=== PATIENT | female | born 1960 | race Caucasian/White ===

== ENCOUNTER 2018-03-06 15:58 | Outpatient (CLI) | payer BC ==
--- NOTE | 2018-03-17 13:37 | Mammography Report ---
Procedure Date: 03/06/2018 Accession Number: [id number] / [id number] Procedure: MGN - Screening Mammo Dig Bilat CPT Code: FULL RESULT: EXAM: Screening Mammo Dig Bilat DATE: 03/06/2018 4:20 PM CLINICAL HISTORY: 57-year-old for screening TECHNIQUE: Bilateral CC and MLO views were obtained. COMPARISON: The patient reports having had previous mammograms in [place], [place], but films are not yet available for direct comparison. If they become available, an addendum will be issued. FINDINGS: The breasts demonstrate diffuse fatty replacement bilaterally. Coarse and punctate, typically benign calcifications are present. No suspicious masses, clustered microcalcifications, or regions of architectural distortion are identified. IMPRESSION: Benign findings RECOMMENDATION: Routine annual screening unless otherwise clinically indicated. BIRADS CATEGORY 2: Benign findings STANDARD QUALIFYING STATEMENTS: 1. This examination was reviewed with the aid of Computer-Aided Detection (CAD). 2. A negative or benign imaging report should not delay biopsy if clinically suspicious findings are present. Consider surgical consultation if warrented. More than 5% of cancers are not identified by imaging. 3. Dense breasts may obscure an underlying neoplasm.
== END 2018-03-06 15:59 | disposition home or self-care (01) ==
LOC: DI.N 15:58
PROVIDERS: ATTEND Nurse Practitioner Obstetrics & Gynecology
DX: Z12.39 Encounter for other screening for malignant neoplasm of breast (principal)
CPT/HCPCS: 77067

== ENCOUNTER 2019-05-07 07:48 | Outpatient (CLI) | payer OTHER ==
--- NOTE | 2019-05-07 12:52 | Mammography Report ---
Reason: BREAST TENDERNESS Procedure Date: 05/07/2019 Accession Number: [id number] / [id number] Procedure: THO - Diagnostic Dig Bilat CPT Code: FULL RESULT: EXAM: Diagnostic Dig Bilat DATE: 05/07/2019 9:02 AM CLINICAL HISTORY: Diagnostic examination. Breast tenderness on the left. TECHNIQUE: (B) - Bilateral CC and MLO views were obtained. COMPARISON: 03/06/2018. PARENCHYMAL PATTERN: (F) - The breast(s) demonstrate(s) diffuse fatty replacement. FINDINGS: Typically benign coarse calcifications are noted. There are no suspicious masses, calcifications, or areas of distortion. IMPRESSION: Benign findings. BI-RADS category 2. RECOMMENDATION: (ANNUAL) - Recommend routine annual screening mammography. BI-RADS CATEGORY: (2) - Benign Findings. STANDARD QUALIFYING STATEMENTS: 1. This examination was not reviewed with the aid of Computer-Aided Detection (CAD). 2. A negative or benign imaging report should not preclude biopsy if clinically suspicious findings are present. 3. Dense breasts may obscure an underlying neoplasm. 4. This examination was reviewed with the aid of 3D breast imaging (tomosynthesis).
== END 2019-05-07 07:49 | disposition home or self-care (01) ==
LOC: DI 07:48
PROVIDERS: ATTEND Nurse Practitioner Obstetrics & Gynecology
DX: N64.4 Mastodynia (principal)
CPT/HCPCS: 77066

== ENCOUNTER 2019-06-20 11:15 | Outpatient (CLI) | payer OTHER ==
--- NOTE | 2019-06-21 15:54 | XRAY Report ---
Reason: BLE PAIN, RADICULOPATHY LOWER ESTREM Procedure Date: 06/20/2019 Accession Number: [id number] / [id number] Procedure: XRN - Pelvis 1 View CPT Code: FULL RESULT: EXAM: PELVIS RADIOGRAPHY 1 VIEW EXAM DATE: 06/20/2019. CLINICAL HISTORY: Bilateral lower extremity pain. Lower extremity radiculopathy. COMPARISON: LUMBAR SPINE 2 VIEW 06/20/2019 11:55 AM. TECHNIQUE: AP view. FINDINGS: Bones: Normal. No fracture or bone lesion. Joints: The hips, the sacroiliac joints, and the pubic symphysis appear normal. Mild L4-L5 disk narrowing. Soft Tissues: Small calcifications lateral to the left greater trochanter. IMPRESSION: Small soft shoe calcification lateral to the left greater trochanter, probably calcific tendinosis. L4-L5 degenerative disk disease. Otherwise normal examination. RADIA
--- NOTE | 2019-06-21 16:03 | XRAY Report ---
Reason: BLE PAIN, RADICULOPATHY LOWER ESTREM Procedure Date: 06/20/2019 Accession Number: [id number] / [id number] Procedure: XRN - Lumbar Spine 2 View CPT Code: FULL RESULT: EXAM: LUMBOSACRAL SPINE RADIOGRAPHY EXAM DATE: 06/20/2019 12:00 PM. CLINICAL HISTORY: Bilateral lower extremity pain, radiculopathy lower extremities. COMPARISONS: PELVIS 1 VIEW 06/20/2019 11:53 AM. TECHNIQUE: 3 views. FINDINGS: There is a 13 degree levoscoliosis of the lumbar spine with the apex at L2-L3. There is a compensatory 7 degree dextroscoliosis of the lower lumbar spine with the apex at L4-L5. The sacral arcs are intact. There are small phleboliths demonstrated within the pelvis. There is a mild decrease in the intervertebral disk space height at L4-L5. There is mild facet arthropathy suggested at L3-L4 through L5-S1. There is mild narrowing of the neural foramina bilaterally at L5-S1. The abdominal aorta exhibits mild calcific plaquing but appears to exhibit a normal caliber. IMPRESSION: 1. There is a 13 degree levoscoliosis of the lumbar spine with the apex at L2-L3 with a compensatory 7 degree dextroscoliosis of the lower lumbar spine with the apex at L4-L5. 2. There are mild degenerative changes of the disk at L4-L5 and there is a mild degree of facet arthropathy at L3-L4 through L5-S1.
== END 2019-06-20 11:16 | disposition home or self-care (01) ==
LOC: DI.N 11:15
PROVIDERS: ATTEND Physician Assistant Medical
DX: M51.16 Intervertebral disc disorders with radiculopathy, lumbar region (principal); M41.86 Other forms of scoliosis, lumbar region
CPT/HCPCS: 72100; 72170

== ENCOUNTER 2020-05-08 15:44 | Outpatient (CLI) | payer OTHER ==
--- NOTE | 2020-05-08 16:56 | XRAY Report ---
PROCEDURE: Cervical Spine 2 View INDICATIONS: CERVICALGIA TECHNIQUE: 2 view(s) of the cervical spine were acquired. COMPARISON: None. FINDINGS: Straightening of the usual cervical lordosis. This is likely related to degenerative change as there is extensive spondylosis and spondyloarthropathy from C3-C4 through C6-C7, focally most pronounced at C5-C6 and C6-C7. There is no listhesis. Vertebral body heights maintained. Developing degenerative ( versus developmental) fusion of the posterior elements at C2-C3. IMPRESSION: Multilevel multifactorial degenerative changes, overall moderate. MRI would be helpful f or further evaluation. Reviewed by: Akhil Taylor MD on 05/08/2020 4:55 PM PDT Approved by: Akhil Taylor MD on 05/08/2020 4:55 PM PDT Station ID: [id number]
== END 2020-05-08 15:45 | disposition home or self-care (01) ==
LOC: DI.N 15:44
PROVIDERS: ATTEND Physician Assistant
DX: M47.812 Spondylosis without myelopathy or radiculopathy, cervical region (principal); R51 Headache
CPT/HCPCS: 72040

== ENCOUNTER 2020-08-29 20:14 | Outpatient (CLI) | payer OTHER | END 2020-08-29 20:15 | disposition critical access hospital (66) | LOC: EMS 20:14 | PROVIDERS: ATTEND Surgery | DX: M25.511 Pain in right shoulder (principal) | CPT/HCPCS: A0425; A0429 ==

== ENCOUNTER 2020-08-29 20:31 | Emergency (ER) | payer OTHER ==
[2020-08-29] MEDS ORDERED: HYDROcod/ACETAM 5/325 MG TABLET PO STA (20:36)
--- NOTE | 2020-08-29 20:39 | ED Physician Documentation ---
PD HPI UPPER EXT INJURY - Stated complaint Stated Complaint: GLF/R ARM PX - History obtained from History obtained from: Patient, EMS - Additonal information Additional information: Trip and fall in the kitchen at home just prior to arrival onto the right elbow. She also hurt the knee just a little bit but is able to walk and bear weight. Has severe upper arm pain. No loss of consciousness or head injury. Review of Systems Ten Systems: 10 systems reviewed and negative Constitutional: reports: Reviewed and negative Ears: reports: Reviewed and negative Nose: reports: Reviewed and negative Throat: reports: Reviewed and negative Cardiac: reports: Reviewed and negative Respiratory: reports: Reviewed and negative PD PAST MEDICAL HISTORY - Past Medical History HEENT: Glaucoma - Past Surgical History Past Surgical History: Yes /DIALYSIS TECH: section, Hysterectomy - Present Medications Home Medications: Ambulatory Orders Medication Instructions Recorded Confirmed prednisoLONE 1% OPHTH DROPS [Pred 1 drop EACHEYE DAILY 08/20/15 08/29/20 Forte 1% Ophth Drops] Brimonidine Tartrate/Timolol 1 drops OP BID 08/29/20 08/29/20 [Combigan 0.2%-0.5% Eye Drops] Brinzolamide 1% Ophth Drops [Azopt 1 drops EACHEYE BID 08/29/20 08/29/20 1% Ophth Drops] Bromfenac Sodium [Prolensa] 1 drops OP DAILY 08/29/20 08/29/20 HYDROcod/ACETAM 5/325 [[place] 5/325] 1 - 2 tab PO Q6H PRN #20 tablet 08/29/20 Levothyroxine Sodium 50 mcg PO DAILY 08/29/20 08/29/20 [Levothyroxine] Lisinopril [Prinivil] 10 mg PO DAILY 08/29/20 08/29/20 Loteprednol Etabonate [Lotemax] 5 gm OP 1-2XD 08/29/20 08/29/20 Rosuvastatin Calcium [Crestor] 10 mg PO DAILY 08/29/20 08/29/20 hydroCHLOROthiazide [Hydrodiuril] 25 mg PO DAILY 08/29/20 08/29/20 - Allergies Allergies/Adverse Reactions: Allergies Allergy/AdvReac Type Severity Reaction Status Date / Time No Known Drug Allergies Allergy Verified 08/29/20 20:49 - Social History Does the pt smoke?: No Smoking Status: Never smoker Does the pt drink ETOH?: Yes Does the pt have substance abuse?: No PD ED PE NORMAL - Vitals Vital signs reviewed: Yes - General General: Alert and oriented X 3, No acute distress - HEENT HEENT: PERRL, EOMI - Neck Neck: Supple, no meningeal sign, No bony TTP - Cardiac Cardiac: RRR, No murmur - Respiratory Respiratory: No respiratory distress, Clear bilaterally - Abdomen Abdomen: Non tender - Extremities Extremities: Other (She cannot range the right shoulder at all and is tender over the upper humerus. No tenderness of the clavicle or the top of the glenohumeral joint. Elbow and wrist are nontender. Good radial pulses on the right. Normal sensation throughout the right hand.) - Neuro Neuro: Alert and oriented X 3, Normal speech Results - Vitals Vitals: Vital Signs - 24 hr 08/29/20 08/29/20 20:32 21:04 Temperature 36.9 C Heart Rate 66 69 Respiratory 17 16 Rate Blood Pressure 200/106 H 163/103 H O2 Saturation 100 100 Oxygen O2 Source Room air PD MEDICAL DECISION MAKING - ED course ED course: 60-year-old woman presents after a ground-level fall with an isolated right h umerus fracture on x-ray. No other apparent serious injuries. Placed in a sling and discussed expected course of healing and signs and symptoms that would necessitate an urgent reevaluation. Departure - Departure Disposition: 01 Home, Self Care Clinical Impression: Closed fracture of neck of right humerus Qualifiers: Encounter type: initial encounter Qualified Code(s): S42.211A - Unspecified displaced fracture of surgical neck of right humerus, initial encounter for closed fracture Condition: Good Record reviewed to determine appropriate education?: Yes Instructions: ED Fx Upper Ext Prescriptions: HYDROcod/ACETAM 5/325 [[place] 5/325] 1 - 2 tab PO Q6H PRN #20 tablet PRN Reason: Pain Comments: As discussed, fracture of the humerus generally heal well without specific intervention. You should follow-up with the orthopedic surgeons within the week for recheck and potentially a referral to physical therapy. Wear the sling as needed for comfort. You can remove it for bathing etc. Do not drink or drive while taking narcotic pain medication. Note that many narcotic pain relievers also contain Tylenol/acetaminophen. Please ensure that your total dose of acetaminophen from all sources does not exceed 3 g (3000 mg) per day. You may get constipated while on this medication. Take a stool softener such as Colace twice a day while you are on it. Also add an koog-gpe-qwedwha laxative such as senna or MiraLAX on any day that you do not have a bowel movement. If you received a narcotic pain medication or sedative while in the emergency department, do not drive for the next 24 hours. Forms: Activity restrictions
[2020-08-29 21:05] VITALS: BP 163/103
--- NOTE | 2020-08-29 21:16 | XRAY Report ---
PROCEDURE: Humerus RT INDICATIONS: r ARM INJ TECHNIQUE: 4 views of the humerus were acquired. COMPARISON: None FINDINGS: Bones: Acute fracture involving right humeral neck is seen with fracture line extending to base of gr eater tuberosity with minimal lateral displacement at fracture site. No fracture or dislocation is se en in mid to distal humeral shaft. Shoulder joint osteoarthritic changes are seen. No suspicious bony lesions. Soft tissues: No suspicious soft tissue calcifications. IMPRESSION: Acute minimally displaced fracture involving right humeral neck extending to base of greater tuberosi ty. Reviewed by: Moe Main MD on 08/29/2020 9:15 PM PST Approved by: Moe Main MD on 08/29/2020 9:15 PM PST Station ID: [id number]
[2020-08-29] MEDS ORDERED: HYDROcod/ACET 5/325 Prepack 4 PO STA (21:22)
== END 2020-08-29 21:40 | disposition home or self-care (01) ==
LOC: EDUNIT# → ED 20:31
DX: S42.211A Unspecified displaced fracture of surgical neck of right humerus, initial encounter for closed fracture (principal); W18.09XA Striking against other object with subsequent fall, initial encounter; Y92.000 Kitchen of unspecified non-institutional (private) residence as the place of occurrence of the external cause; M25.569 Pain in unspecified knee
CPT/HCPCS: 73060; 99283; 99284; A9270

== ENCOUNTER 2020-09-04 11:55 | Outpatient (CLI) | payer OTHER ==
--- NOTE | 2020-09-04 12:34 | XRAY Report ---
PROCEDURE: Shoulder 3 View RT INDICATIONS: NONDISPLACED FX OF PROXIMAL END OF R HUMERUS TECHNIQUE: 3 views of the shoulder were acquired. COMPARISON: Humerus x-ray 08/29/2020 FINDINGS: Bones: Stable interval exam demonstrating fracture of the right humeral neck with fracture lucency ex tending to the greater tuberosity. There is minimal displacement without dislocation at the glenohume ral joint space. Minimal inferior subluxation is noted. Severe acromioclavicular degenerative narrowi ng. No suspicious bony lesions. Visualized ribs appear intact. Soft tissues: No suspicious soft tissue calcifications. IMPRESSION: Stable alignment appears identified humeral neck fracture extending to the greater tuber osity. Reviewed by: Ruma Paez MD on 09/04/2020 12:33 PM PST Approved by: Ruma Paez MD on 09/04/2020 12:33 PM PST Station ID: [id number]
== END 2020-09-04 23:59 | disposition home or self-care (01) ==
LOC: DI.N 11:55
PROVIDERS: ATTEND Orthopaedic Surgery
DX: S42.291D Other displaced fracture of upper end of right humerus, subsequent encounter for fracture with routine healing (principal)

== ENCOUNTER 2020-09-18 08:00 | Outpatient (CLI) | payer OTHER ==
--- NOTE | 2020-09-18 14:09 | XRAY Report ---
PROCEDURE: Shoulder 3 View RT INDICATIONS: OTHER NONDISPLACED FX OF PROXIMAL R HUMERUS TECHNIQUE: 3 views of the shoulder were acquired. COMPARISON: None. FINDINGS: Bones: No fractures or dislocations. There is moderately severe to severe AC joint osteoarthritis b ut only mild degenerative change at the glenohumeral joint. Note is made of a vertically oriented fra cture, healing, along the base of the greater tuberosity, previously documented. No suspicious bony l esions. Visualized ribs appear intact. Soft tissues: No suspicious soft tissue calcifications. IMPRESSION: Healing vertically oriented fracture along the base of the greater tuberosity from prior shoulder plain film imaging 09/04/2020 and humerus plain films 08/29/2020. Normal alignment maintain ed. 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 Reviewed by: Jeff Meyers MD on 09/18/2020 2:07 PM PST Approved by: Jeff Meyers MD on 09/18/2020 2:07 PM PST Station ID: [id number]
== END 2020-09-18 23:59 | disposition home or self-care (01) ==
LOC: DI.N 08:00
PROVIDERS: ATTEND Orthopaedic Surgery
DX: S42.254A Nondisplaced fracture of greater tuberosity of right humerus, initial encounter for closed fracture (principal); M19.011 Primary osteoarthritis, right shoulder

== ENCOUNTER 2020-10-06 09:01 | Outpatient (CLI) | payer OTHER ==
--- NOTE | 2020-10-06 09:59 | XRAY Report ---
PROCEDURE: Hand 3 View RT INDICATIONS: R HAND PX TECHNIQUE: 3 views of the hand(s) acquired. COMPARISON: None FINDINGS: Bones: No acute fractures or dislocations. Mild osteoarthritic changes are noted at first CMC joint and first MCP joint. No gross bony erosive changes. Old healed fracture involving ulnar styloid tip i s seen. No suspicious bony lesions. Soft tissues: No suspicious soft tissue calcifications. IMPRESSION: Old healed ulnar styloid tip fracture. No acute right hand fracture or dislocation. Mild osteoarthrit ic changes in right thumb as above. Reviewed by: Moe Main MD on 10/06/2020 9:57 AM [facility] [[email or web address]] Approved by: Moe Main MD on 10/06/2020 9:57 AM PST Station ID: [id number]
== END 2020-10-06 09:02 | disposition home or self-care (01) ==
LOC: DI.N 09:01
PROVIDERS: ATTEND Family Medicine
DX: M18.11 Unilateral primary osteoarthritis of first carpometacarpal joint, right hand (principal)

== ENCOUNTER 2020-10-10 14:29 | Outpatient (CLI) | payer OTHER ==
--- NOTE | 2020-10-10 16:51 | XRAY Report ---
PROCEDURE: Hand 3 View RT INDICATIONS: HAND JOINT PAIN, RIGHT TECHNIQUE: 3 views of the hand acquired. COMPARISON: Right hand radiographs 10/06/2020 FINDINGS: Bones: No acute fracture or dislocation. A chronic ununited ulnar styloid tip fracture is noted. Mild degenerative changes are seen in the first carpometacarpal and metacarpophalangeal joint. No focal o sseous erosion is identified. Soft tissues: No suspicious soft tissue calcifications. IMPRESSION: No acute osseous abnormality. Stable chronic ununited fracture of the ulnar styloid tip. Mild degener ative changes of the first carpometacarpal and metacarpophalangeal joints. No radiographic signs of i nflammatory arthritis. Reviewed by: Danielito Grijalva MD on 10/10/2020 4:49 PM [facility] Approved by: Danielito Grijalva MD on 10/10/2020 4:49 PM [facility] Station ID: [id number]
== END 2020-10-10 23:59 | disposition home or self-care (01) ==
LOC: DI.N 14:29
PROVIDERS: ATTEND Orthopaedic Surgery
DX: S52.611K Displaced fracture of right ulna styloid process, subsequent encounter for closed fracture with nonunion (principal); M18.11 Unilateral primary osteoarthritis of first carpometacarpal joint, right hand; M19.041 Primary osteoarthritis, right hand

== ENCOUNTER 2021-05-26 11:57 | Emergency (ER) | payer OTHER ==
--- NOTE | 2021-05-26 14:19 | Ultrasound Report ---
PROCEDURE: Duplex Ext Veins Right INDICATIONS: R thigh pain x 3 days TECHNIQUE: Real-time imaging, as well as color and pulse Doppler interrogation, were performed of the lower extr emity deep veins from the inguinal ligament to the popliteal fossa. COMPARISON: None. FINDINGS: The deep veins are normally compressible, and free of intraluminal thrombus. Color and pu lse Doppler demonstrate normal phasic intraluminal flow. There is normal augmentation response to di stal compression maneuver. IMPRESSION: No deep venous thrombosis. Reviewed by: Ruma Paez MD on 05/26/2021 2:18 PM PDT Approved by: Ruma Paez MD on 05/26/2021 2:18 PM PDT Station ID: [id number]
--- NOTE | 2021-05-26 15:11 | ED Physician Documentation ---
History of Present Illness - Stated complaint Stated Complaint: HIGH BP,PAIN UPPER R THIGH - Chief complaint Chief Complaint: Ext Problem - History obtained from History obtained from: Patient - History of Present Illness Timing: Today Pain level max: 0 Pain level now: 0 - Additonal information Additional information: Patient is a 61-year-old female who was sent from the walk-in clinic for rule out DVT. She states that she has had right thigh pain for the past 3 days. She states her blood pressure was higher than usual this morning at 150/90. She states her normal is about 130. No chest pain. No shortness of breath. No headache. No visual changes. No numbness or tingling. No recent travel. No t rauma that she is aware of. No skin changes. No fever. 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, Hysterectomy - Present Medications Home Medications: Ambulatory Orders Medication Instructions Recorded Confirmed prednisoLONE 1% OPHTH DROPS [Pred 1 drop EACHEYE DAILY 08/20/15 08/29/20 Forte 1% Ophth Drops] Brimonidine Tartrate/Timolol 1 drops OP BID 08/29/20 08/29/20 [Combigan 0.2%-0.5% Eye Drops] Brinzolamide 1% Ophth Drops [Azopt 1 drops EACHEYE BID 08/29/20 08/29/20 1% Ophth Drops] Bromfenac Sodium [Prolensa] 1 drops OP DAILY 08/29/20 08/29/20 HYDROcod/ACETAM 5/325 [[place] 5/325] 1 - 2 tab PO Q6H PRN #20 tablet 08/29/20 Levothyroxine Sodium 50 mcg PO DAILY 08/29/20 08/29/20 [Levothyroxine] Loteprednol Etabonate [Lotemax] 5 gm OP 1-2XD 08/29/20 08/29/20 Rosuvastatin Calcium [Crestor] 10 mg PO DAILY 08/29/20 08/29/20 hydroCHLOROthiazide [Hydrodiuril] 25 mg PO DAILY 08/29/20 08/29/20 lisinopriL [Prinivil] 10 mg PO DAILY 08/29/20 08/29/20 - Allergies Allergies/Adverse Reactions: Allergies Allergy/AdvReac Type Severity Reaction Status Date / Time No Known Drug Allergies Allergy Verified 08/29/20 20:49 - Social History Does the pt smoke?: No Smoking Status: Never smoker Does the pt drink ETOH?: Yes Does the pt have substance abuse?: No - Immunizations Immunizations are current?: Yes - POLST Patient has POLST: No PD ED PE NORMAL - Vitals Vital signs reviewed: Yes - General General: Alert and oriented X 3, No acute distress, Well developed/nourished - HEENT HEENT: PERRL, Moist mucous membranes - Neck Neck: Supple, no meningeal sign - Cardiac Cardiac: RRR, No murmur, Strong equal pulses - Respiratory Respiratory: No respiratory distress, Clear bilaterally - Abdomen Abdomen: Soft, Non tender, Non distended - Derm Derm: Warm and dry - Extremities Extremities: No calf tenderness / cord, Other (Mild tenderness to palpation over the medial aspect of the distal right thigh. No swelling. No skin changes. Neurovascular intact.) - Neuro Neuro: Alert and oriented X 3 - Psych Psych: Normal mood, Normal affect Results - Vitals Vitals: Vital Signs - 24 hr 05/26/21 05/26/21 12:15 15:25 Temperature 36.6 C 36.3 C L Heart Rate 64 65 Respiratory 14 16 Rate Blood Pressure 128/82 H 145/95 H O2 Saturation 98 99 Oxygen O2 Source Room air - Rads (name of study) Duplex ultrasound right lower extremity Radiology: Final report received, EMP read contemporaneously, See rad report (No DVT) PD MEDICAL DECISION MAKING - ED course Complexity details: reviewed results, re-evaluated patient, considered differential, d/w patient ED course: Unclear etiology of her right thigh pain. Likely musculoskeletal in nature. No evidence of infection. We will continue supportive care and have her follow-up with her doctor for further care. No indication for further testing for her asymptomatic hypertension. She can follow-up with her doctor for this. Patient counseled regarding signs and symptoms for which I believe and urgent re- evaluation would be necessary. Patient with good understanding of and agreement to plan and is comfortable going home at this time This document was made in part using voice recognition software. While efforts are made to proofread this document, sound alike and grammatical errors may occur. Departure - Departure Disposition: Home, Self Care Clinical Impression: Hypertension Qualifiers: Hypertension type: unspecified Qualified Code(s): I10 - Essential (primary) hypertension Leg pain Qualifiers: Laterality: right Qualified Code(s): M79.604 - Pain in right leg Condition: Good Instructions: ED HTN Established, ED Strain Muscle Ext Follow-Up: Gadiel Francisco MD [Primary Care Provider] - Within 1 week Comments: Please follow-up with your doctor for further care. Return if you worsen. Your ultrasound does not show any acute abnormalities today. Your blood pressure is normal here. Discharge Date/Time: 05/26/21 15:26
[2021-05-26 15:26] VITALS: BP 145/95
== END 2021-05-26 15:26 | disposition home or self-care (01) ==
LOC: ED 11:57
DX: M79.651 Pain in right thigh (principal); I10 Essential (primary) hypertension
CPT/HCPCS: 99284

== ENCOUNTER 2022-02-22 15:35 | Outpatient (CLI) | payer OTHER ==
--- NOTE | 2022-02-24 12:14 | Mammography Report ---
BILATERAL DIGITAL SCREENING MAMMOGRAM 3D/2D: 02/22/2022 CLINICAL: Routine screening. Comparison is made to exams dated: 05/07/2019 mammogram and 03/06/2018 mammogram - [facility]. The tissue of both breasts is predominantly fatty. No significant masses, calcifications, or other findings are seen in either breast. There has been no significant interval change. IMPRESSION: NEGATIVE There is no mammographic evidence of malignancy. A 1 year screening mammogram is recommended. This exam was interpreted at Station ID: [id number]. NOTE: For mammograms, a report in lay terms will be sent to the patient. Approximately 15% of breast malignancies will not be visualized mammographically. In the management of a palpable breast mass, a negative mammogram must not discourage biopsy of a clinically suspicious lesion. Electronically Signed By: Edmundo Collins M.D. slc/penrad:02/23/2022 12:35:14 ACR BI-RADS Category 1: Negative 3341F PARENCHYMAL PATTERN: (F) - The breast(s) demonstrate(s) diffuse fatty replacement. BI-RADS CATEGORY: (1) - 1 RECOMMENDATION: (ANNUAL) - Recommend routine annual screening mammography. [id number] 1 year screening LATERALITY: (B)
== END 2022-02-22 15:36 | disposition home or self-care (01) ==
LOC: DI.N 15:35
DX: Z12.31 Encounter for screening mammogram for malignant neoplasm of breast (principal)